=== PATIENT | female | born 1970 | race Caucasian/White ===

== ENCOUNTER → 2019-12-06 06:45 | Outpatient (CLI) | payer BC, SELFPAY ==
--- NOTE | ~2019-12-06 | MM_ITS ---
EXAMINATION: MM screening [facility] BI w nicole HISTORY: Screening mammogram TECHNIQUE: Craniocaudal and mediolateral oblique 3-D tomosynthesis images were obtained and synthetic 2-D images were generated. CAD analysis was submitted and interpreted. COMPARISON: 12/02/2018, 11/23/2017, 11/04/2016 BREAST PARENCHYMAL COMPOSITION: The breasts are heterogeneously dense, which may obscure small masses . FINDINGS: There is no evidence of suspicious mass, calcification, or architectural distortion to sugg est malignancy in either breast. There has been no suspicious interval change. IMPRESSION: 1. No mammographic evidence of malignancy. 2. Recommend routine screening mammography in one year. BI-RADS Category 1: Negative Reviewed, dictated and finalized at location A. ITURE REMOVALIST
== END ==
PROVIDERS: Visit Provider Nurse Practitioner
DX: Z12.31 Encounter for screening mammogram for malignant neoplasm of breast (principal)
CPT/HCPCS: 77063; 77067

== ENCOUNTER → 2020-12-07 07:12 | Outpatient (CLI) | payer BC, SELFPAY ==
--- NOTE | ~2020-12-07 | MM_ITS ---
EXAMINATION: MM screening [facility] BI w nicole HISTORY: Screening TECHNIQUE: Craniocaudal and mediolateral oblique 3-D tomosynthesis images were obtained and synthetic 2-D images were generated. CAD analysis was submitted and interpreted. COMPARISON: Comparison to multiple prior studies sequentially, with oldest reviewed study dated 09/19. BREAST PARENCHYMAL COMPOSITION: The breasts are heterogeneously dense, which may obscure small masses . FINDINGS: There is no evidence of suspicious mass, calcification, or architectural distortion to sugg est malignancy in either breast. There has been no suspicious interval change. IMPRESSION: 1. No mammographic evidence of malignancy. 2. Recommend routine screening mammography in one year. BI-RADS Category 1: Negative Reviewed, dictated and finalized at location A. L DIALYSIS RN
== END ==
PROVIDERS: PCP Family Medicine; Visit Provider Nurse Practitioner
DX: Z12.31 Encounter for screening mammogram for malignant neoplasm of breast (principal)
CPT/HCPCS: 77063; 77067

== ENCOUNTER 2021-12-10 07:31 | Outpatient (CLI) | payer OTHER, SELFPAY ==
--- NOTE | ~2021-12-10 | MM_ITS ---
EXAMINATION: MM screening [facility] BI w nicole HISTORY: Screening mammogram TECHNIQUE: Craniocaudal and mediolateral oblique 3-D tomosynthesis images were obtained and synthetic 2-D images were generated. CAD analysis was submitted and interpreted. COMPARISON: December 07, 2020, December 06, 2019, December 02, 2018 bilateral screening mammogram exa minations BREAST PARENCHYMAL COMPOSITION: The breasts are heterogeneously dense, which may obscure small masses . FINDINGS: There is no evidence of suspicious mass, calcification, or architectural distortion to sugg est malignancy in either breast. There has been no suspicious interval change. IMPRESSION: 1. No mammographic evidence of malignancy. 2. Recommend routine screening mammography in one year. BI-RADS Category 1: Negative Reviewed, dictated and finalized at location A. ICULTURAL INTERNSHIP
== END 2021-12-10 07:32 | disposition home or self-care (01) ==
PROVIDERS: PCP Family Medicine; Visit Provider Nurse Practitioner
DX: Z12.31 Encounter for screening mammogram for malignant neoplasm of breast (principal)
CPT/HCPCS: 77063; 77067

== ENCOUNTER → 2022-04-03 16:38 | Outpatient (CLI) | payer OTHER, SELFPAY ==
--- NOTE | ~2022-04-03 | XR_ITS ---
XR hip LT min 2V DATE: 04/03/2022 16:57 INDICATION: Left hip pain TECHNIQUE: AP and lateral views COMPARISON: None FINDINGS: There is mild to moderate left hip joint space narrowing and prominent spurring of the left femoral head consistent with moderate left hip osteoarthritis. No fracture or dislocation, avascular necrosis or bone destruction of the left hip. Prominent degenerative disc disease at L4-5 and L5-S1. IMPRESSION: Moderately prominent left hip osteoarthritis Reviewed, dictated and finalized at location A.
== END ==
PROVIDERS: PCP Family Medicine; Visit Provider Family Medicine
DX: M25.552 Pain in left hip (principal); M16.12 Unilateral primary osteoarthritis, left hip
CPT/HCPCS: 73502

== ENCOUNTER 2022-08-25 00:12 | Day surgery (SDC) | payer OTHER, SELFPAY ==
[2022-08-14 13:47] VITALS: BMI 22.2
--- NOTE | 2022-08-22 16:34 | PM.HPGS ---
History of Present Illness History of Present Illness Consent: Risks, benefits, and alternatives have been discussed and questions answered. Patient agrees to proceed with procedure. Chief complaint: neoplasm screening Narrative: Susie Muniz is a 52 year old female Referred for colon cancer screening. Review of Systems Review of Systems: All systems reviewed & are unremarkable except as noted in HPI and below PMFSH Family History Family History Father , 2020 Heart attack Other Diabetes mellitus Social History Social History Smoking status: Never smoker Substance use type: does not use Living arrangements: with family Spiritual care concerns: No Meds Home Medications and Allergies Home Medications Medication Instructions Recorded Confirmed Type alprazolam 0.5 mg tablet See Rx Instructions PO .QHS #60 01/08/22 08/14/22 Rx tabs biotin 1,000 mcg chewable tablet 1,000 mcg PO DAILY 07/03/22 08/14/22 History sertraline 50 mg tablet (Zoloft) 50 mg PO DAILY #90 tabs 07/03/22 08/14/22 Rx sodium,potassium,mag sulfates 17.5 See Rx Instructions PO .COMPLEX 08/22/22 08/25/22 Rx gram-3.13 gram-1.6 gram oral soln #354 mL (Suprep Bowel Prep Kit) Allergies Allergy/AdvReac Type Severity Reaction Status Date / Time No Known Allergies Allergy Mild Verified 08/25/22 06:23 Exam Resp: Auscultation: clear to auscultation bilaterally Cardio: Rate: regular rate Rhythm: regular rhythm GI: GI Palp: Yes Soft to palpation and No Tenderness to palpation present (GI) Assessment and Plan Assessment and plan (1) Colon cancer screening: Code(s): Z12.11 - Encounter for screening for malignant neoplasm of colon Status: Acute Assessment and Plan: Colonoscopy with possible biopsy or polypectomy or cautery or injection of substances.
[2022-08-25 06:24] VITALS: BP 130/72; PULSE 91; RESP 20; TEMP 36.2; O2SAT 100; BMI 22.8
[2022-08-25] MEDS: LACTATED RINGERS 1,000 ML 30 ML IV CONT (06:31)
--- NOTE | 2022-08-25 07:20 | WPDANESEPPF ---
Anes - Initial Pre Proc Eval Procedure: Operation Date: 08/25/22 07:30 Proposed Procedures p Screening Colonoscopy - Miguel Hoyos MD Date/Time: 08/25/22 07:20 Surgeon: Miguel Hoyos MD Pre Op Diagnosis: neoplasm screening Patient Data Age: 52 Gender: F Height: 1.6 m Weight: 58.4 kg Last Vital Signs Temp 97.1 F L 08/25/22 06:24 Pulse 91 08/25/22 06:24 Resp 20 08/25/22 06:24 BP 130/72 08/25/22 06:24 Pulse Ox 100 08/25/22 06:24 O2 Del Method Room Air 08/25/22 06:24 Allergies Allergy/AdvReac Type Severity Reaction Status Date / Time No Known Allergies Allergy Mild Verified 08/25/22 06:23 Home Medications Medication Instructions Recorded Confirmed Type alprazolam 0.5 mg tablet See Rx Instructions PO .QHS #60 01/08/22 08/14/22 Rx tabs biotin 1,000 mcg chewable tablet 1,000 mcg PO DAILY 07/03/22 08/14/22 History sertraline 50 mg tablet (Zoloft) 50 mg PO DAILY #90 tabs 07/03/22 08/14/22 Rx sodium,potassium,mag sulfates 17.5 See Rx Instructions PO .COMPLEX 08/22/22 08/25/22 Rx gram-3.13 gram-1.6 gram oral soln #354 mL (Suprep Bowel Prep Kit) Patient hx anesthesia problems: none Family hx anesthesia problems: none Results Review: All pre-operative results and documents have been reviewed as part of the pre-operative evaluation. [facility] Family History Family History Father , 2019 Heart attack Other Diabetes mellitus Social History Social History Smoking status: Never smoker Substance use type: does not use Living arrangements: with family Spiritual care concerns: No Anes - Eval Final PreProcedure Day of Procedure 08/25/22 07:20 Patient weight: normal Heart: regular rate and rhythm Lungs: clear to auscultation Airway: Mallampati scale class II Neurological: alert and oriented Last oral intake: >/= 8 hours ASA classification: II Emergent: no Anesthetic plan: proceed Anesthesia type and monitoring: general GIVS and standard monitoring Results Review: All pre-operative results and documents have been reviewed as part of the pre-operative evaluation. Informed Consent: The patient's anesthetic plan and its attendant risks and benefits were discussed with the patient/family/POA. Questions were solicited and answers provided to the satisfaction of the patient/family/POA.
[2022-08-25 07:42] VITALS: BP 112/73; PULSE 62; RESP 17; O2SAT 96
[2022-08-25 07:52] VITALS: BP 117/75; PULSE 68; RESP 14; O2SAT 95
[2022-08-25 08:02] VITALS: BP 124/78; PULSE 68; RESP 14; O2SAT 95
== END 2022-08-25 08:15 | disposition home or self-care (01) ==
PROVIDERS: PCP Family Medicine; Visit Provider Internal Medicine Gastroenterology
PROC: 0DJD8ZZ Inspection of Lower Intestinal Tract, Via Natural or Artificial Opening Endoscopic (ICD-10-PCS; CPT 45378; principal; 2022-08-25 07:30)
DX: Z12.11 Encounter for screening for malignant neoplasm of colon (principal)
CPT/HCPCS: 45378; J2704; J7120

== ENCOUNTER 2023-01-16 07:49 | Outpatient (CLI) | payer OTHER, SELFPAY ==
--- NOTE | ~2023-01-16 | MM_ITS ---
EXAMINATION: MM screening [facility] BI w nicole HISTORY: Screening TECHNIQUE: Craniocaudal and mediolateral oblique 3-D tomosynthesis images were obtained and synthetic 2-D images were generated. CAD analysis was submitted and interpreted. COMPARISON: Comparison to multiple prior studies sequentially, with oldest reviewed study dated 11/04. BREAST PARENCHYMAL COMPOSITION: The breasts are heterogeneously dense, which may obscure small masses . FINDINGS: There is no evidence of suspicious mass, calcification, or architectural distortion to sugg est malignancy in either breast. There has been no suspicious interval change. IMPRESSION: 1. No mammographic evidence of malignancy. 2. Recommend routine screening mammography in one year. BI-RADS Category 1: Negative. Reviewed, dictated and finalized at location A.
== END 2023-01-16 07:50 | disposition home or self-care (01) ==
LOC: ANHIMG 07:50
PROVIDERS: PCP Family Medicine; Visit Provider Obstetrics & Gynecology Gynecology
DX: Z12.31 Encounter for screening mammogram for malignant neoplasm of breast (principal)
CPT/HCPCS: 77063; 77067

== ENCOUNTER 2024-01-21 07:17 | Outpatient (CLI) | payer OTHER, SELFPAY ==
--- NOTE | ~2024-01-21 | MM_ITS ---
EXAMINATION: MM screening [facility] BI w nicole HISTORY: Screening TECHNIQUE: Craniocaudal and mediolateral oblique 3-D tomosynthesis images were obtained and synthetic 2-D images were generated. CAD analysis was submitted and interpreted. COMPARISON: Comparison to multiple prior studies sequentially, with oldest reviewed study dated 12/07. BREAST PARENCHYMAL COMPOSITION: Not dense: There are scattered areas of fibroglandular density. FINDINGS: There is a developing mass in the upper outer quadrant of the left breast, middle third. Th e right breast is stable without evidence for malignancy. IMPRESSION: 1. Developing left breast mass. 2. Additional mammographic views and possible breast ultrasound are recommended. BI-RADS Category 0: Incomplete: Needs additional imaging evaluation. Reviewed, dictated and finalized at location A. IMPRESSION: 1. Developing left breast mass. 2. Additional mammographic views and possible breast ultrasound are recommended . BI-RADS Category 0: Incomplete: Needs additional imaging evaluation.
== END 2024-01-21 07:18 | disposition home or self-care (01) ==
PROVIDERS: PCP Family Medicine; Visit Provider Nurse Practitioner
DX: Z12.31 Encounter for screening mammogram for malignant neoplasm of breast (principal); R92.8 Other abnormal and inconclusive findings on diagnostic imaging of breast
CPT/HCPCS: 77063; 77067

== ENCOUNTER 2024-01-22 11:44 | Outpatient (CLI) | payer OTHER, SELFPAY ==
--- NOTE | ~2024-01-22 | MMUS_ITS ---
EXAMINATION: MM diagnostic [facility]se LT w nicole, US breast LT complete HISTORY: Follow-up left breast asymmetries TECHNIQUE: Additional 3-D tomosynthesis images of the left breast were performed and synthetic 2-D im ages were generated. CAD analysis was submitted and interpreted. High resolution complete left breast ultrasound was performed. COMPARISON: Comparison to multiple prior studies sequentially, with oldest reviewed study dated 09/18. BREAST PARENCHYMAL COMPOSITION: Not dense: There are scattered areas of fibroglandular density. FINDINGS: MAMMOGRAPHIC FINDINGS: There are scattered obscured masses in the left breast. No architectural distortion or suspicious sweta cifications. ULTRASOUND: Complete US of all 4 quadrants of the left breast and retroareolar region was reviewed. There are mul tiple cysts of the left breast. No at 4:00, 3 cm from the nipple, there is an oval hypoechoic paralle l oriented mass without significant posterior features or internal vascularity measuring 9 x 7 x 3 mm . At 11:00, near the arterial lobe there is a slightly irregular cyst measuring 3 mm, likely benign. Also near the areola there is an oval hypoechoic partially cystic mass measuring 5 mm, likely benign. IMPRESSION: 1. Probable benign left breast masses. 2. Recommend 6 month follow-up diagnostic left mammogram and Limited left breast ultrasound BI-RADS category 3, probably benign findings. Reviewed, dictated and finalized at location A. IMPRESSION: 1. Probable benign left breast masses. 2. Recommend 6 month follow-up diagnostic left mammogram and Limited left breas t ultrasound BI-RADS category 3, probably benign findings.
== END 2024-01-22 11:45 ==
PROVIDERS: PCP Nurse Practitioner; Visit Provider Family Medicine
DX: R92.8 Other abnormal and inconclusive findings on diagnostic imaging of breast (principal)
CPT/HCPCS: 76641; 77061; 77065; G0279

== ENCOUNTER 2024-08-24 10:19 | Outpatient (CLI) | payer OTHER, SELFPAY ==
--- NOTE | ~2024-08-24 | MMUS_ITS ---
EXAMINATION: MM diagnostic [facility]se LT w nicole, US breast LT limited HISTORY: Follow-up left breast mass TECHNIQUE: Additional 3-D tomosynthesis images of the left breast were performed and synthetic 2-D im ages were generated. CAD analysis was submitted and interpreted. High resolution Limited left breast ultrasound was performed. COMPARISON: Comparison to multiple prior studies sequentially, with oldest reviewed study dated 12/06. BREAST PARENCHYMAL COMPOSITION: Dense: The breasts are heterogeneously dense, which may obscure small masses FINDINGS: MAMMOGRAPHIC FINDINGS: Left breast asymmetries are stable compared with prior examination. No discrete mass or architectural distortion. There are no suspicious calcifications. ULTRASOUND: Limited left breast ultrasound: At 4:00, 3 cm from the nipple there is an oval hypoechoic mass with e chogenic hilum, likely benign intramammary lymph node measuring 7 mm. At 11:00 near the areola there is a 3 mm cyst. No suspicious masses to suggest malignancy. Mildly prominent periareolar ducts. IMPRESSION: 1. No evidence for malignancy in the left breast. 2. Routine yearly screening mammogram and regular clinical breast examination are recommended. BI-RADS Category 2: Benign finding(s). Reviewed, dictated and finalized at location B. LE CLERK IMPRESSION: 1. No evidence for malignancy in the left breast. 2. Routine yearly screening mammogram and regular clinical breast examination a re recommended. BI-RADS Category 2: Benign finding(s).
== END 2024-08-24 10:20 | disposition home or self-care (01) ==
LOC: ANHIMG 10:21
PROVIDERS: PCP Family Medicine; Visit Provider Family Medicine
DX: R92.8 Other abnormal and inconclusive findings on diagnostic imaging of breast (principal)
CPT/HCPCS: 76642; 77061; 77065; G0279

== ENCOUNTER 2024-10-27 15:43 | Outpatient (CLI) | payer OTHER, SELFPAY ==
--- NOTE | ~2024-10-27 | XR_ITS ---
XR_CERV2-3V_CR 10/27/2024 16:13 Indication: Neck pain. Somatic dysfunction. Procedure: 3 view cervical spine Comparison: No prior studies for comparison. Findings: Straightening of cervical lordosis. Vertebral body heights are maintained. There is disc na rrowing at C6-7. There is uncinate and facet hypertrophy at most cervical spine levels. Lung apices a re unremarkable. Odontoid process is normal. No prevertebral soft tissue abnormality. Impression: 1: Moderate cervical spondylosis. Reviewed, dictated and finalized at location B. AL GUNNER SUPERINTENDENT Impression: 1: Moderate cervical spondylosis.
--- NOTE | ~2024-10-27 | XR_ITS ---
XR lumbar spine 2-3V 10/27/2024 16:13 Indication: Radiculopathy. Back pain. Procedure: 3 views lumbar spine Comparison: No prior studies for comparison. Findings: There is levocurvature of the lumbar spine. There is disc narrowing and endplate hypertroph y at L4-5. There is facet hypertrophy at L4-5 and L5-S1. Pedicles intact. No fracture or traumatic ma lalignment. Vertebral body heights are maintained. Impression: 1: Severe lumbar spondylosis. Reviewed, dictated and finalized at location B. SHED CLOTH EXAMINER Impression: 1: Severe lumbar spondylosis.
== END 2024-10-27 15:44 | disposition home or self-care (01) ==
PROVIDERS: PCP Family Medicine
DX: M47.816 Spondylosis without myelopathy or radiculopathy, lumbar region (principal); M47.812 Spondylosis without myelopathy or radiculopathy, cervical region; M99.01 Segmental and somatic dysfunction of cervical region; M99.03 Segmental and somatic dysfunction of lumbar region; M54.42 Lumbago with sciatica, left side
CPT/HCPCS: 72040; 72100

== ENCOUNTER 2024-12-06 10:02 | Outpatient (CLI) | payer OTHER, SELFPAY ==
--- OUTSIDE RECORDS SUMMARY | 2024-12-06 10:13 | XMS_ITS | Clinical Summary ---
Author Organization [facility] Address [address] [place] [id number] Care Team Providers Care Manager Insurance Name Role Phone Justin Sanchez MD Primary Care Provider [phone]- [phone] Allergies No known active allergies Medications sertraline (ZOLOFT) 50 MG tablet Take 50 mg by mouth daily. 07/03/2022 Active ALPRAZolam (XANAX) 0.5 MG tablet Take by mouth nightly at bedtime. 05/27/2022 Active Social History Tobacco Use Types Packs/Day Years Used Date Smoking Tobacco: Never Smokeless Tobacco: Never Alcohol Use Standard Drinks/Week Comments Yes 0 (1 standard drink = 0.6 oz pur e alcohol) Soically Comments Unknown Sex and Gender Information Value Date Recorded Sex Assigned at Not on file Legal Sex Female 4:44 PM CDT Gender Identity Not on file Sexual Orientation Not on file Last Filed Vital Signs Vital Sign Reading Time Taken Comments Blood Pressure 132/70 07/09/2022 10:00 PM CDT Pulse 65 07/09/2022 10:00 PM CDT Temperature 36.6 C (97.8 F) 07/09/2022 7:55 PM CDT Respiratory Rate 21 07/09/2022 10:00 PM CDT Oxygen Saturation 98% 07/09/2022 10:00 PM CDT Inhaled Oxygen Concentration - - Weight 58.1 kg (128 lb) 07/09/2022 7:55 PM CDT Height 160 cm (5' 3 ) 07/09/2022 7:55 PM CDT Body Mass Index 22.67 07/09/2022 7:55 PM CDT Plan of Treatment Health Maintenance Due Date Last Done Comments Colorectal Cancer Screening Colonoscopy (10 Years) 1971 Annual Physical 1974 Hepatitis C 1989 Hepatitis B Vaccines (1 of 3 - 19+ 3-dose series) 1990 Mammogram Screening 2011 Cervical Cancer Screening Pap Smear (Age 30 to 64) Every 3 Years 08/04/2020 08/04/2017 Zoster Vaccines (1 of 2) 2021 Cervical Cancer Screening Pap with HPV Testing (Age 30 to 64) Every 5 Years 08/04/2022 08/04/2017 Cervical Cancer Screening with HPV 08/04/2022 COVID-19 Vaccine ( season) 2024 08/02/2021, 10/30/2020, 10/09/2020 Influenza Adult (#1) 2024 08/21/2021, 07/27/2020, 07/26/2019, Additional history exists DTaP, Tdap and Td Vaccines (2 - Td or Tdap) 04/24/2032 04/24/2022 Meningococcal B Vaccine Aged Out No l onger eligible based on patient's age to complete this topic Meningococcal Vaccine Aged Out No parul avery eligible based on patient's age to complete this topic Pneumococcal Vaccine: Pediatrics (0 to 5 Years) and At-Risk Patients (6 to 64 Years) Aged Out No longer eligible based on patient's age to complete this topic RSV Immunizations Under 20 Months Aged Out No longer eligible based on patient's age to complete this topic Insurance R Care Teams Manager Insurance Relationship Specialty Start Date End Date Justin Sanchez MD [id number] [place] [address] PCP - General FAMILY PRACTICE 07/09/22
--- NOTE | 2024-12-06 11:00 | NEURO_ITS ---
Impression: # Complains of nocturnal paresthesia in both hands. Non-diabetic. ? # Bilateral Carpal Tunnel Syndrome of moderate degree. ? # No ulnar neuropathy. ? # Needle/EMG exam mildly abnormal. Nerve Conduction Studies Anti Sensory Summary Table ?Stim Site NR Peak (ms) P-T Amp (?V) Site1 Site2 Delta-P (ms) Dist (cm) Austin (m/s) Left Median Anti Sensory (2-3nd Digit) Wrist ? 4.9 21.3 Wrist 2-3nd Digit 4.9 14.0 29 Wrist ? 4.9 14.6 Wrist 2-3nd Digit 4.9 14.0 29 Right Median Anti Sensory (2-3nd Digit) Wrist ? 5.1 35.2 Wrist 2-3nd Digit 5.1 14.0 27 Wrist ? 5.2 11.4 Wrist 2-3nd Digit 5.1 14.0 27 Left Radial Anti Sensory (Base 1st Digit) Wrist ? 1.9 35.9 Wrist Base 1st Digit 1.9 0.0 Right Radial Anti Sensory (Base 1st Digit) Wrist ? 2.5 29.6 Wrist Base 1st Digit 2.5 0.0 Left Ulnar Anti Sensory (5th Digit) Wrist ? 2.2 54.5 Wrist 5th Digit 2.2 14.0 64 Right Ulnar Anti Sensory (5th Digit) Wrist ? 2.1 66.8 Wrist 5th Digit 2.1 14.0 67 Motor Summary Table ?Stim Site NR Onset (ms) O-P Amp (mV) Site1 Site2 Delta-0 (ms) Dist (cm) Austin (m/s) Left Median Motor (Abd Poll Brev) Wrist ? 5.7 1.6 Elbow Wrist 4.3 26.0 60 Elbow ? 10.0 1.6 ELB/ADM Wrist 3.3 0.0 ELB/ADM ? 2.4 2.4 Right Median Motor (Abd Poll Brev) Wrist ? 3.5 4.1 Elbow Wrist 4.5 28.0 62 Elbow ? 8.0 4.1 Left Ulnar Motor (Abd Dig Minimi) Wrist ? 2.0 9.5 A Elbow Wrist 4.6 28.0 61 A Elbow ? 6.6 8.7 Right Ulnar Motor (Abd Dig Minimi) Wrist ? 2.4 4.4 A Elbow Wrist 4.6 29.0 63 A Elbow ? 7.0 3.5 F Wave Studies ?NR F-Lat (ms) L-R F-Lat (ms) Left Median (Mrkrs) (Abd Poll Brev) ? 27.07 0.33 Right Median (Mrkrs) (Abd Poll Brev) ? 26.74 0.33 Left Ulnar (Mrkrs) (Abd Dig Min) ? 26.15 0.56 Right Ulnar (Mrkrs) (Abd Dig Min) ? 25.59 0.56 EMG ?Side Muscle Nerve Root Ins Act Fibs Amp Dur Recrt Comment Right 1stDorInt Ulnar C8-T1 Nml Nml Nml Nml Nml Right Ext Indicis Radial (Post Int) C7-8 Nml Nml Nml Nml Nml Right Ext Digitorum Radial (Post Int) C7-8 Nml Nml Nml Nml Nml Right BrachioRad Radial C5-6 Nml Nml Nml Nml Nml Right PronatorTeres Median C6-7 Nml Nml Nml Nml Nml Right Abd Poll Brev Median C8-T1 Nml Nml Nml Nml Nml Right ABD Dig Min Ulnar C8-T1 Nml Nml Nml Nml Nml Left 1stDorInt Ulnar C8-T1 Nml Nml Nml Nml Nml Left Ext Indicis Radial (Post Int) C7-8 Nml Nml Nml Nml Nml Left Ext Digitorum Radial (Post Int) C7-8 Nml Nml Nml Nml Nml Left BrachioRad Radial C5-6 Nml Nml Nml Nml Nml Left PronatorTeres Median C6-7 Nml Nml Nml Nml Nml Left Abd Poll Brev Median C8-T1 Nml Nml Nml >12ms +1 Left ABD Dig Min Ulnar C8-T1 Nml Nml Nml Nml Nml MTDD
== END 2024-12-06 10:03 | disposition home or self-care (01) ==
LOC: ANHNEURO 10:03
PROVIDERS: PCP Family Medicine; Visit Provider Family Medicine
DX: G56.03 Carpal tunnel syndrome, bilateral upper limbs (principal)
CPT/HCPCS: 95886; 95911

== ENCOUNTER 2025-08-01 07:40 | Outpatient (CLI) | payer OTHER, SELFPAY ==
--- NOTE | ~2025-08-01 | DEXA_ITS ---
Bone Density Report Name: ABDOUL COLE Age: 55 Sex: Female Ethnicity: White Date of : 1970 Indication: postmenopausal; screening for osteoporosis; Referring Provider: SUKHWINDER, SATURNINO Study: Bone densitometry was performed. Exam Date: August 01, 2025 Accession number: [id number] Bone Density: Region BMD T-score Z-score Classification AP Spine(L1, L2, L3) 0.992 -0.2 0.7 Normal Femoral Neck (Left) 0.843 -0.1 0.9 Normal Total Hip (Left) 0.822 -1.0 -0.4 Normal Femoral Neck (Right) 0.754 -0.9 0.1 Normal Total Hip (Right) 0.830 -0.9 -0.3 Normal Total Hip Mean 0.826 -1.0 -0.4 Normal World Health Organization criteria for BMD impression classify patients as: Normal (T-score at or above -1.0), Osteopenia (T-score between -1.0 and -2.5), or Osteoporosis (T-score at or below -2.5). 10-year Fracture Risk: FRAX not reported because: All T-scores for Spine Total, Hip Total, Femoral Neck at or above -1.0 Clinical Information Provided by Patient: Has used the following medications: Vitamin D, Calcium Patient maximum height was 63 Menopause Age: 55 Drinks caffeinated beverages Onset of menses at age 12 Number of children 2 Impression: The patient has normal bone mass. Discussion: BONE DENSITY IS ABOVE THE MINIMUM DESIRABLE LEVEL AT ALL SKELETAL SITES TESTED. This patient?s bone mineral density is above the minimum desirable level (T-score -1.0 or better) at all sites measured. The patient should follow a healthful lifestyle (good nutrition with adequate calcium and vitamin D, and appropriate weight-bearing exercise). Follow-Up: Consider repeating this study in 5 years or sooner if there is some new clinical indication. Reported by: KRIS on 08/01/2025 8:36:00 AM. Reviewed, dictated and finalized at location A.
--- NOTE | ~2025-08-01 | MM_ITS ---
EXAMINATION: MM screening [facility] BI w nicole HISTORY: Screening TECHNIQUE: Craniocaudal and mediolateral oblique 3-D tomosynthesis images were obtained and synthetic 2-D images were generated. CAD analysis was submitted and interpreted. COMPARISON: 01/16/2023 BREAST PARENCHYMAL COMPOSITION: The breasts are heterogeneously dense, which may obscure small masses. FINDINGS: There is no evidence of suspicious mass, calcification, or architectural distortion to suggest malignancy. Asymmetry in the medial left breast, middle depth, seen in the left CC projection. Asymmetry in the upper left breast, left, seen in the left MLO projection. IMPRESSION: 1. Asymmetry in the medial left breast, middle depth, seen in the left CC projection. The study is incomplete. A diagnostic mammogram and a diagnostic ultrasound are recommended. 2. Asymmetry in the upper left breast, left, seen in the left MLO projection. The study is incomplete. A diagnostic mammogram and a diagnostic ultrasound are recommended. BI-RADS 0: Incomplete-Need additional imaging evaluation. Reviewed, dictated and finalized at location Q. IMPRESSION: 1. Asymmetry in the medial left breast, middle depth, seen in the left CC proje ction. The study is incomplete. A diagnostic mammogram and a diagnostic ultraso und are recommended. 2. Asymmetry in the upper left breast, left, seen in the left MLO projection. T he study is incomplete. A diagnostic mammogram and a diagnostic ultrasound are recommended. BI-RADS 0: Incomplete-Need additional imaging evaluation.
== END 2025-08-01 07:41 | disposition home or self-care (01) ==
LOC: ANHFOHIMG 07:43
PROVIDERS: PCP Family Medicine; Visit Provider Nurse Practitioner
DX: Z12.31 Encounter for screening mammogram for malignant neoplasm of breast (principal); R92.8 Other abnormal and inconclusive findings on diagnostic imaging of breast; Z78.0 Asymptomatic menopausal state
CPT/HCPCS: 77063; 77067; 77080

== ENCOUNTER 2025-09-11 11:01 | Outpatient (CLI) | payer OTHER, SELFPAY ==
--- NOTE | ~2025-09-11 | MMUS_ITS ---
EXAMINATION: MM diagnostic alyse LT w nicole, US breast LT complete HISTORY: Follow-up left breast asymmetry TECHNIQUE: Additional 3-D tomosynthesis images of the left breast were performed and synthetic 2-D images were generated. CAD analysis was submitted and interpreted. High resolution complete left breast ultrasound was performed. COMPARISON: Comparison to multiple prior studies sequentially, with oldest reviewed study dated 12/10/2021. BREAST PARENCHYMAL COMPOSITION: Not dense: There are scattered areas of fibroglandular density. FINDINGS: MAMMOGRAPHIC FINDINGS: There are no suspicious masses, calcifications or architectural distortion in the left breast to suggest malignancy. ULTRASOUND: Complete US of all 4 quadrants of the left breast/s and retroareolar region was reviewed. Normal heterogeneous echotexture without focal solid or cystic mass. IMPRESSION: 1. No evidence for malignancy in the left breast. 2. Routine yearly screening mammogram and regular clinical breast examination are recommended. BI-RADS Category 1: Negative Reviewed, dictated and finalized at location O. T SPRAYER IMPRESSION: 1. No evidence for malignancy in the left breast. 2. Routine yearly screening mammogram and regular clinical breast examination a re recommended. BI-RADS Category 1: Negative
== END 2025-09-11 11:02 | disposition home or self-care (01) ==
LOC: ANHFOHIMG 11:02
PROVIDERS: PCP Family Medicine; Visit Provider Obstetrics & Gynecology Gynecology
DX: R92.8 Other abnormal and inconclusive findings on diagnostic imaging of breast (principal)
CPT/HCPCS: 76641; 77061; 77065; G0279

== ENCOUNTER 2025-09-29 01:24 | Day surgery (SDC) | payer OTHER, SELFPAY ==
--- NOTE | 2025-09-23 16:00 | PM.IMHP2 ---
H&P: HPI History of Present Illness Date/Time: 09/23/25 16:00 Chief Complaint: procedure Narrative: stress urinary incontinence Review of Systems Review of Systems: All systems reviewed & are unremarkable except as noted in HPI and below [facility] Past Medical History Medical History (Updated 09/23/25 @ 16:01 by Jerry Quevedo MD) Stress incontinence in female Family History Family History Father , 2019 Heart attack Other Diabetes mellitus Social History Social History Smoking status: Never smoker Substance use type: does not use Living arrangements: with family Spiritual care concerns: No Meds Home Medications and Allergies Home Medications ?Medication ?Instructions ?Recorded ?Confirmed ?Type estradiol 0.5 mg-progesterone 100 1 cap PO DAILY 12/14/24 History mg capsule (Bijuva) multivitamin with minerals-folic 1 tablet PO DAILY 12/14/24 History acid 120 mcg chewable tablet (Women's Multivitamin Gummies) sertraline 100 mg tablet 100 mg PO DAILY #90 tabs 02/14/25 Rx cyclobenzaprine 10 mg tablet 10 mg PO TID PRN muscle spasm #30 05/04/25 Rx tabs buspirone 5 mg tablet 5 mg PO BID #180 tabs 08/14/25 Rx Allergies Allergy/AdvReac Type Severity Reaction Status Date / Time No Known Allergies Allergy Mild Verified 12/14/24 11:41 Exam Narrative: urethral hypermobility Assessment and Plan Assessment and plan (1) JANNETH (stress urinary incontinence, female): Code(s): N39.3 - Stress incontinence (female) (male) Status: Acute Plan urethral sling/cystoscopy
[2025-09-26 14:46] VITALS: BMI 24.5
--- NOTE | 2025-09-26 14:59 | PC.NURSE ---
[facility] has started construction of its new state of the art ER which will open Spring 2026. With this, we anticipate parking may be a challenge for some our surgical patients and families. Parking spaces are limited but are available for all Surgical, obstetrics, and ER patients sharing this lot. If you arrive and find you are having a hard time finding a parking space, please note that we understand the challenges, please drive around the hospital and park near Hospital Entrance 1. When you enter this entrance, you can ask a volunteer to direct or take you back to the surgical waiting area to check in. We appreciate everyone?s understanding of these expected challenges while we build for your future. Report to the Outpatient Waiting Room, entrance under the green pavilion located off [address], at time _07:00AM on date _09/29/25 . Planned Procedure Time: _09:00AM .? Time changes happen often and if your time is changed the preop area will call you the afternoon before. - You and your visitor will be asked to self-screen and do not enter if you have any COVID symptoms. Please call surgeon if you need to reschedule. - A mask is optional within the hospital at this time. Patients may have clear liquids (water, carbonated beverages, clear teas, apple juice) until 3 hours prior to surgery with a maximum of 20 ounces. - No food from midnight until time of surgery and no smoking, or chewing tobacco (or any form of nicotine). No chewing gum, candy or mints. Take only the following medications with a SIP of water on the morning of surgery: ___BUSPIRONE, _SERTRALINE DO NOT STOP ANY OF YOUR OTHER PRESCRIPTION MEDICATIONS PRIOR TO SURGERY EXCEPT THE FOLLOWING Hold all vitamins and supplements for 3 days per anesthesiologist. Medications to discontinue per physician N/A Date to take last dose N/A Please no make-up, nail frisian, hairspray, perfume, deodorant, or body powder the day of surgery.? No jewelry (including any body piercings) or valuables the day of surgery, leave them at home.? Please take a shower or bath the night before, or the morning of, surgery with an antibacterial soap.? Wear comfortable, loose fitting clothing.? - Jewelry must be removed prior to entering the operating room.? Rings and piercings that are not removed may be cut off. - The hospital will not accept responsibility for valuables.? - Please leave all valuables, including medications, at home the day of surgery. If you are going home after surgery, a licensed lunch truck driver must drive you home.? - NO public transportation without another adult if you receive anesthesia. - We recommend that an adult stay with you for 24 hours following discharge. - We also recommend that you do not drive, make important decision, drink alcoholic beverages, or take any drugs that were not prescribed by your health care provider for at least 24 hours after your discharge time. Follow any additional instructions given to you from your surgeon. Telephone instructions given to _ABDOUL and asked if any additional questions and then verbalized understanding. Patient advised to call surgeon office or pre surgery nurse liaison [phone] if any additional questions.
--- OUTSIDE RECORDS SUMMARY | 2025-09-29 01:27 | XMS_ITS | Clinical Summary ---
Author Organization [facility] Address [address] [place] [address] Care Team Providers Care Analysis Tester Name Role Phone Justin Sanchez MD Primary Care Provider [phone]- [phone] Allergies No known active allergies Medications sertraline [...] 7:55 PM CDT Height 160 cm (5' 3) 07/09/2022 7:55 PM CDT Body Mass Index 22.67 07/09/2022 7:55 PM CDT Plan of Treatment Health Maintenance Due Date Last Done Comments Colorectal Cancer Screening Colonoscopy (10 Years) 1971 Annual Physical 1974 Hepatitis C 1989 Hepatitis B Vaccines (1 of 3 - 19+ 3-dose series) 1990 Cervical Cancer Screening Pap with HPV Testing (Age 30 to 64) Every 5 Years 2001 Mammogram Screening 2011 Cervical Cancer Screening Pap Smear (Age 30 to 64) Every 3 Years 08/04/2020 08/04/2017 Cervical Cancer Screening with HPV 08/04/2020 Pneumococcal Vaccine: 50+ Years (1 of 1 - PCV) 2021 Zoster Vaccines (1 of 2) 2021 COVID-19 Vaccine (4 - season) 2025 08/02/2021, 10/30/2020, 10/09/2020 Influenza Adult (#1) 2025 08/21/2021, 07/27/2020, 07/26/2019, Additional history exists DTaP, Tdap and Td Vaccines (2 - Td or Tdap) 04/24/2032 04/24/2022 Hepatitis A Vaccines Aged Out No long er eligible based on patient's age to complete this topic Meningococcal B Vaccine Aged Out No l onger eligible based on patient's age to complete this topic Meningococcal Vaccine Aged Out No parul avery eligible based on patient's age to complete this topic RSV Immunizations Under 20 Months Aged Out No longer eligible based on patient's age to complete this topic Insurance Member Subscriber Plan / Payer (Ef fective 2021-Present) Name:Susie Muniz Relation to Subscriber:Self Name:Susie Muniz Payer ID:[id number] (NAIC) Type:Not on file Address: [place] [id number] Care Teams Analysis Tester Relationship Specialty Start Date End Date Justin Sanchez MD [address] [place] [address] [address] [place] [address] PCP - General FAMILY PRACTICE 07/09/22
[2025-09-29 07:12] VITALS: BMI 24.7
[2025-09-29 07:15] VITALS: BP 115/75; PULSE 71; RESP 16; TEMP 36.4; O2SAT 98
--- NOTE | 2025-09-29 07:18 | WPDHPUPDATE1 ---
History and Physical Update Update Date/Time: 09/29/25 07:18 History and Physical has been reviewed, including an updated exam of the patient. There are NO changes in the patient's condition. Risks, benefits, and alternatives have been discussed and questions answered. Patient agrees to proceed with procedure.
[2025-09-29] MEDS: LACTATED RINGERS 1,000 ML 30 ML IV CONT (07:35)
--- NOTE | 2025-09-29 08:32 | WPDANESEPPF ---
Anes - Initial Pre Proc Eval Procedure: Operation Date: 09/29/25 09:00 Proposed Procedures p Urethral Sling - Jerry Quevedo MD Date/Time: 09/29/25 08:32 Surgeon: Jerry Quevedo MD Pre Op Diagnosis: stress incontinence Patient Data Age: 55 Gender: F Height: 1.6 m Weight: 63.4 kg Last Vital Signs Temp 36.4 C 09/29/25 07:15 Pulse 71 09/29/25 07:15 Resp 16 09/29/25 07:15 BP 115/75 09/29/25 07:15 Pulse Ox 98 09/29/25 07:15 O2 Del Method Room Air 09/29/25 07:15 Allergies Allergy/AdvReac Type Severity Reaction Status Date / Time No Known Allergies Allergy Mild Verified 09/29/25 07:56 Home Medications ?Medication ?Instructions ?Recorded ?Confirmed ?Type estradiol 0.5 mg-progesterone 100 1 cap PO DAILY 12/14/24 09/29/25 History mg capsule (Bijuva) multivitamin with minerals-folic 1 tablet PO DAILY 12/14/24 09/29/25 History acid 120 mcg chewable tablet (Women's Multivitamin Gummies) sertraline 100 mg tablet 100 mg PO DAILY #90 tabs 02/14/25 09/29/25 Rx cyclobenzaprine 10 mg tablet 10 mg PO TID PRN muscle spasm #30 05/04/25 09/26/25 Rx tabs buspirone 5 mg tablet 5 mg PO BID #180 tabs 08/14/25 09/29/25 Rx Patient hx anesthesia problems: none Family hx anesthesia problems: none Results Review: All pre-operative results and documents have been reviewed as part of the pre-operative evaluation. [facility] Past Medical History Medical History Stress incontinence in female Family History Family History Father , 2019 Heart attack Other Diabetes mellitus Social History Social History Smoking status: Never smoker Alcohol intake: current Substance use: never Substance use type: does not use Living arrangements: with family Spiritual care concerns: No Anes - Eval Final PreProcedure Day of Procedure 09/29/25 08:32 Patient weight: normal Heart: regular rate and rhythm Lungs: clear to auscultation Airway: Mallampati scale class 1 Neurological: alert and oriented Last oral intake: >/= 8 hours ASA classification: II Emergent: no Anesthetic plan: proceed Anesthesia type and monitoring: general GIVS and standard monitoring Results Review: All pre-operative results and documents have been reviewed as part of the pre-operative evaluation. Informed Consent: The patient's anesthetic plan and its attendant risks and benefits were discussed with the patient/family/POA. Questions were solicited and answers provided to the satisfaction of the patient/family/POA.
[2025-09-29] MEDS: ceFAZolin 2 GM in SODIUM CHLORIDE 0.9% IV 50 ML 100 ML IVPB (08:38)
[2025-09-29 09:11] VITALS: BP 110/62; PULSE 63; O2SAT 99
--- NOTE | 2025-09-29 09:14 | P.OP_ITS ---
Procedure Note - Detailed Date of Procedure 09/29/25 Pre-op Diagnosis stress incontinence Post-op Diagnosis Same Procedure Performed mid urethral sling cystoscopy Surgeon Jerry Quevedo MD Anesthesia MAC and Local Indications This is a female with confirm stress urinary incontinence. She desires surgical correction. She understands the risks of bleeding, infection, injury to the urinary tract, vaginal mesh extrusion, urinary tract mesh erosion, obstructive voiding requiring a secondary procedure, hip and leg pain, dyspareunia, inability to improve overactive bladder symptoms. She agrees to proceed. Description of Procedure She was correctly identified. Informed consent obtained. She was brought the operating room. She was given appropriate anesthesia. She was given appropriate perioperative antibiotics. A time-out performed. I marked out the site of the inner thigh incisions. I anesthetized the skin and made those incisions. I anesthetized the anterior vaginal wall over the mid urethra. I made a 1 cm incision. I dissected out laterally taking great care not to injure the refilled vaginal wall. I passed the helical trocars. First on the left. Then on the right. I did this from the thigh incision towards the vaginal incis ion. The sling was connected to the trocars and brought out through the thigh incision. I tensioned the sling appropriately. I cut and the plastic sheaths. I then closed the incision with 2 0 Vicryl. On cystoscopy there is no tumors or surgical artifact. There was no surgical artifact in the urethra. I cut the excess sling material. Close incisions with glue. She was awakened and transferred to the PACU in stable condition. Implants Urethral sling Drains No Packing No Pathology None sent Complications No immediate complications Condition Stable Disposition PACU
[2025-09-29] MEDS: BUPIVACAINE/EPINEPHRINE 0.5% 50 ML VIAL 30 ML INFILTRATE (09:22)
[2025-09-29 09:30] VITALS: BP 116/69; PULSE 61; O2SAT 100
[2025-09-29 10:00] VITALS: BP 117/67; PULSE 57; O2SAT 100
== END 2025-09-29 10:23 | disposition home or self-care (01) ==
PROVIDERS: PCP Family Medicine; Visit Provider Urology
PROC: (CPT 57288; principal; 2025-09-29 09:00)
DX: N39.3 Stress incontinence (female) (male) (principal); Z82.49 Family history of ischemic heart disease and other diseases of the circulatory system
CPT/HCPCS: 57288; J0690; C1771; J2704; J3010; J7120